=== PATIENT | male | born 1990 | race Caucasian/White ===

== ENCOUNTER 2018-04-01 16:06 | Inpatient (IN) | payer SELFPAY ==
[~2018-04-01] VITALS: Ht 180.3 cm; Wt 108.4 kg
[2018-04-01] MEDS ORDERED: ONDANSETRON HCL 4MG/2ML INJ IV STA (19:43)
[2018-04-01] MEDS ORDERED: FAMOTIDINE 20MG/2ML VIAL IV STA (19:43)
[2018-04-01] MEDS ORDERED: SODIUM CHLORIDE 0.9% 1,000 ML IV ONE (19:43)
[2018-04-01] MEDS ORDERED: MORPHINE SULFATE 4 MG/ML CPJ (NOT FOR IM USE) IV STA (19:43)
[2018-04-01 20:25] LABS: BASOPHILS % 0.5 % (0.0-2.0); EOSINOPHILS % 1.1 % (0.0-5.0); HEMATOCRIT. 42.9 % (42.0-52.0); HEMOGLOBIN. 15.2 g/dL (14.0-18.0); MEAN CORPUSCULAR HEMOGLOBIN 31.9 pg (28.0-32.0); MEAN CORPUSCULAR VOLUME 89.9 fL (80.0-94.0); MEAN PLATELET VOLUME 9.1 fl (7.4-10.4); MONOCYTES % 8.5 % (2.0-8.0); NEUTROPHILS % 72.9 % (40.0-76.0); PLATELET 187 x1000/uL (130-400); RED BLOOD CELL COUNT 4.78 mill/uL (4.7-6.1); RED CELL DISTRIBUTION WIDTH 13.4 % (11.6-14.6)
[2018-04-01 20:27] LABS: CHLORIDE 101 mEq/L (98-107); INR 1.1; PROTHROMBIN TIME 10.9 sec (9.1-11.1)
[2018-04-01 20:31] LABS: ETHANOL BLOOD < 10 mg/dL
[2018-04-01] MEDS ORDERED: SODIUM CHLORIDE 0.9% 1000ML BAG (SEPSIS BOLUS) IV ONE (20:45)
[2018-04-01 21:09] LABS: AMYLASE 71 IU/L (25-115)
[2018-04-01 21:50] LABS: CLARITY URINE CLOUDY (CLEAR); COLOR URINE YELLOW (YELLOW); KETONES URINE 1+ (NEGATIVE); LEUKOCYTE ESTERASE URINE 1+ (NEGATIVE); NITRITE URINE NEGATIVE (NEGATIVE); OCCULT BLOOD URINE 2+ (NEGATIVE); PROTEIN URINE NEGATIVE (NEGATIVE); SPECIFIC GRAVITY URINE 1.051 (1.005-1.030); UROBILINOGEN URINE 0.2 E.U./dL (0.2-1.0)
[2018-04-01 22:12] LABS: *AMPHETAMINES SCREEN URINE NEGATIVE (NEGATIVE); *BARBITURATES SCREEN URINE NEGATIVE (NEGATIVE); *BENZODIAZEPINES SCREEN URINE NEGATIVE (NEGATIVE); METHADONE URINE SCREEN NEGATIVE (NEGATIVE); OPIATES URINE SCREEN NEGATIVE (NEGATIVE); PHENCYCLIDINE URINE SCREEN NEGATIVE (NEGATIVE)
[2018-04-01 22:13] LABS: *COCAINE SCREEN URINE NEGATIVE (NEGATIVE); CANNABINOID URINE SCREEN NEGATIVE (NEGATIVE)
[2018-04-02] VITALS (7 sets, daily range): BP systolic 100–124; BP diastolic 56–81
[2018-04-02] MEDS ORDERED: ONDANSETRON HCL 4MG/2ML INJ IV PRN (01:30)
[2018-04-02] MEDS: DEXT 5%/0.45% NACL KCL 20MEQ/L 1,000 ML IV SCH ×2 (04:41→21:05)
[2018-04-02 07:12] LABS: BASOPHILS % 0.4 % (0.0-2.0); EOSINOPHILS % 2.1 % (0.0-5.0); HEMATOCRIT. 37.9 % (42.0-52.0); LYMPHOCYTES % 21.7 % (20.0-50.0); MEAN CORPUSCULAR HEMOGLOBIN 30.9 pg (28.0-32.0); MEAN CORPUSCULAR VOLUME 90.3 fL (80.0-94.0); MEAN PLATELET VOLUME 8.9 fl (7.4-10.4); MONOCYTES % 8.7 % (2.0-8.0); NEUTROPHILS % 67.1 % (40.0-76.0); PLATELET 145 x1000/uL (130-400); RED CELL DISTRIBUTION WIDTH 13.6 % (11.6-14.6)
[2018-04-02 08:26] LABS: CHLORIDE 106 mEq/L (98-107)
[2018-04-02 08:29] LABS: AMYLASE 83 IU/L (25-115)
[2018-04-02] MEDS: PANTOPRAZOLE SODIUM 40 MG/VIAL IV SCH (08:33)
[2018-04-02 08:35] LABS: LDL CHOLESTEROL 52 mg/dL (5-100)
[2018-04-02 08:37] LABS: HDL CHOLESTEROL 26 mg/dL (40-59)
[2018-04-02] MEDS ORDERED: HYDROMORPHONE HCL/PF 2MG/ML CPJ IV PRN (12:15)
[2018-04-02] MEDS: FENOFIBRATE NANOCRYSTALLIZED 145MG TABLET PO SCH (12:30)
[2018-04-02] MEDS: CEFTRIAXONE 1 G PREMIX 50 ML IV SCH (14:14)
[2018-04-02] MEDS ORDERED: ACETAMINOPHEN 650MG/20.3ML UDC PO PRN (22:45)
[2018-04-03] VITALS: BP 114/68
[2018-04-03 04:00] VITALS: BP 99/67
[2018-04-03] MEDS: DEXT 5%/0.45% NACL KCL 20MEQ/L 1,000 ML IV SCH ×2 (04:47→11:29)
[2018-04-03 07:44] LABS: BASOPHILS % 0.5 % (0.0-2.0); EOSINOPHILS % 3.5 % (0.0-5.0); HEMOGLOBIN. 12.7 g/dL (14.0-18.0); LYMPHOCYTES % 29.7 % (20.0-50.0); MEAN CORPUSCULAR HEMOGLOBIN 31.3 pg (28.0-32.0); MEAN CORPUSCULAR VOLUME 91.3 fL (80.0-94.0); MONOCYTES % 9.6 % (2.0-8.0); NEUTROPHILS % 56.7 % (40.0-76.0); PLATELET 152 x1000/uL (130-400); RED BLOOD CELL COUNT 4.06 mill/uL (4.7-6.1); RED CELL DISTRIBUTION WIDTH 13.8 % (11.6-14.6)
[2018-04-03 07:54] LABS: CHLORIDE 101 mEq/L (98-107)
[2018-04-03 08:00] VITALS: BP 107/68
[2018-04-03 08:10] LABS: AMYLASE 38 IU/L (25-115)
[2018-04-03] MEDS: FENOFIBRATE NANOCRYSTALLIZED 145MG TABLET PO SCH (08:31)
[2018-04-03] MEDS: PANTOPRAZOLE SODIUM 40 MG/VIAL IV SCH (08:31)
[2018-04-03] MEDS: CEFTRIAXONE 1 G PREMIX 50 ML IV SCH (10:40)
[2018-04-03] MEDS ORDERED: INFLUENZA VIRUS VACCINE(AFLURIA) 0.5ML SYR IM ONE (11:30)
[2018-04-03 11:48] VITALS: BP 120/60
[2018-04-03 12:00] VITALS: BP 120/60
== END 2018-04-03 12:26 | disposition home or self-care (01) | DRG 282 ==
LOC: ER 16:06 → 6EST 21:42 → EDBEDREQ 22:11 → ENRESERV 22:45
PROVIDERS: ADMIT Internal Medicine; ATTEND Internal Medicine
DX: K85.90 Acute pancreatitis without necrosis or infection, unspecified (principal); K76.0 Fatty (change of) liver, not elsewhere classified; E87.1 Hypo-osmolality and hyponatremia; E78.1 Pure hyperglyceridemia; N39.0 Urinary tract infection, site not specified; E66.9 Obesity, unspecified; Z68.33 Body mass index [BMI] 33.0-33.9, adult; Z71.3 Dietary counseling and surveillance
CPT/HCPCS: 36415; 71045; 76705; 80061; 80305; 82150; 83036; 83605; 83880; 84484; 90686; 93005; 96361; 96374; 96375; 99285; C9113; G0482; J0696; J2270; J2405; J3490; J7030; J7050

== ENCOUNTER 2019-08-17 07:11 | Inpatient (IN) | payer SELFPAY ==
[~2019-08-17] VITALS: Ht 182.9 cm; Wt 102.1 kg
[2019-08-17] MEDS ORDERED: MORPHINE SULFATE 4 MG/ML CPJ (NOT FOR IM USE) IV ONE (09:30)
[2019-08-17] MEDS ORDERED: ONDANSETRON HCL 4MG/2ML INJ IV ONE (09:30)
[2019-08-17 09:41] LABS: BASOPHILS % 0.3 % (0.0-2.0); EOSINOPHILS % 1.5 % (0.0-5.0); LYMPHOCYTES % 15.7 % (20.0-50.0); MEAN CORPUSCULAR VOLUME 87.8 fL (80.0-94.0); MEAN PLATELET VOLUME 8.9 fl (7.4-10.4); NEUTROPHILS % 73.5 % (40.0-76.0); PLATELET 189 x1000/uL (130-400); RED BLOOD CELL COUNT 4.78 mill/uL (4.7-6.1); RED CELL DISTRIBUTION WIDTH 13.6 % (11.6-14.6)
[2019-08-17 10:02] LABS: CLARITY URINE CLEAR (CLEAR); COLOR URINE YELLOW (YELLOW); KETONES URINE 4+ (NEGATIVE); LEUKOCYTE ESTERASE URINE NEGATIVE (NEGATIVE); NITRITE URINE NEGATIVE (NEGATIVE); OCCULT BLOOD URINE NEGATIVE (NEGATIVE); PROTEIN URINE NEGATIVE (NEGATIVE); SPECIFIC GRAVITY URINE 1.046 (1.005-1.030); UROBILINOGEN URINE 0.2 E.U./dL (0.2-1.0)
[2019-08-17 10:09] LABS: CHLORIDE 104 mEq/L (98-107)
[2019-08-17 10:17] LABS: MEAN CORPUSCULAR HEMOGLOBIN 30.5 pg (28.0-32.0)
[2019-08-17 10:18] LABS: HEMOGLOBIN. 14.6 g/dL (14.0-18.0)
[2019-08-17 10:42] LABS: PROTHROMBIN TIME 10.5 sec (9.6-11.0)
[2019-08-17 15:42] VITALS: BP 127/86
[2019-08-17] MEDS ORDERED: ONDANSETRON HCL 4MG/2ML INJ IV PRN (15:45)
[2019-08-17] MEDS ORDERED: DEXTROSE 50% WATER 50ML SYRINGE IV PRN (15:45)
[2019-08-17] MEDS ORDERED: ZOLPIDEM TARTRATE 5MG TABLET PO PRN (15:45)
[2019-08-17] MEDS ORDERED: LORAZEPAM 0.5MG TABLET PO PRN (15:45)
[2019-08-17] MEDS ORDERED: GUAIFENESIN 200MG/10ML SUGAR FREE UDC PO PRN (15:45)
[2019-08-17] MEDS ORDERED: CLONIDINE 0.1MG TABLET PO PRN (15:45)
[2019-08-17] MEDS ORDERED: ACETAMINOPHEN 325MG TABLET PO PRN ×2 (15:45)
[2019-08-17] MEDS ORDERED: NITROGLYCERIN 0.4MG TABLET SL SL PRN (15:45)
[2019-08-17] MEDS ORDERED: DOCUSATE SODIUM 100MG CAPSULE PO PRN (15:45)
[2019-08-17] MEDS ORDERED: MAGNESIUM/ALUMINUM HYDROXIDE/SIMETHICONE 30ML UDC PO PRN (15:45)
[2019-08-17] MEDS ORDERED: IPRATROPIUM/ALBUTEROL 0.5-3(2.5)MG/3ML NEB ORI PRN (15:45)
[2019-08-17 16:00] VITALS: BP 128/78
[2019-08-17] MEDS: PANTOPRAZOLE SODIUM 40 MG/VIAL IV SCH (17:36)
[2019-08-17] MEDS: SODIUM CHLORIDE 0.9% 1,000 ML IV SCH (17:36)
[2019-08-17] MEDS: GEMFIBROZIL 600MG TABLET PO SCH (17:37)
[2019-08-17] MEDS: HEPARIN 5000 UNITS/ML VIAL SUBCUT SCH ×2 (17:37→21:38)
[2019-08-17] MEDS: KETOROLAC 30MG/ML VIAL IV PRN (17:38)
[2019-08-17] MEDS: BLOOD SUGAR DIAGNOSTIC STRIP TEST SCH ×2 (17:38→21:36)
[2019-08-17] MEDS: INSULIN LISPRO 100 UNITS/ML SUBCUT SCH ×2 (18:29→21:39)
[2019-08-17 18:44] LABS: LDL CHOLESTEROL 210 mg/dL (5-100)
[2019-08-17 19:28] LABS: AMYLASE 138 IU/L (25-115)
[2019-08-17 19:34] LABS: HDL CHOLESTEROL 26 mg/dL (40-59)
[2019-08-17 19:51] LABS: *AMPHETAMINES SCREEN URINE NEGATIVE (NEGATIVE); *BARBITURATES SCREEN URINE NEGATIVE (NEGATIVE); *BENZODIAZEPINES SCREEN URINE NEGATIVE (NEGATIVE); *COCAINE SCREEN URINE NEGATIVE (NEGATIVE); METHADONE URINE SCREEN NEGATIVE (NEGATIVE)
[2019-08-17 19:52] LABS: CANNABINOID URINE SCREEN NEGATIVE (NEGATIVE); OPIATES URINE SCREEN PRESUMTIVE POSITIVE (NEGATIVE); PHENCYCLIDINE URINE SCREEN NEGATIVE (NEGATIVE)
[2019-08-17 19:55] LABS: ETHANOL BLOOD < 10 mg/dL
[2019-08-17 20:00] VITALS: BP 104/54
[2019-08-18] MEDS: KETOROLAC 30MG/ML VIAL IV PRN ×4 (00:46→20:28)
[2019-08-18] MEDS: SODIUM CHLORIDE 0.9% 1,000 ML IV SCH ×4 (00:46→18:11)
[2019-08-18 04:00] VITALS: BP 120/67
[2019-08-18] MEDS: HEPARIN 5000 UNITS/ML VIAL SUBCUT SCH ×3 (06:03→20:28)
[2019-08-18 06:41] LABS: BASOPHILS % 0.6 % (0.0-2.0); EOSINOPHILS % 2.1 % (0.0-5.0); HEMATOCRIT. 38.6 % (42.0-52.0); HEMOGLOBIN. 13.6 g/dL (14.0-18.0); LYMPHOCYTES % 18.5 % (20.0-50.0); MEAN CORPUSCULAR HEMOGLOBIN 31.2 pg (28.0-32.0); MEAN CORPUSCULAR VOLUME 88.8 fL (80.0-94.0); MEAN PLATELET VOLUME 8.9 fl (7.4-10.4); MONOCYTES % 8.4 % (2.0-8.0); NEUTROPHILS % 70.4 % (40.0-76.0); PLATELET 149 x1000/uL (130-400); RED BLOOD CELL COUNT 4.35 mill/uL (4.7-6.1); RED CELL DISTRIBUTION WIDTH 13.9 % (11.6-14.6)
[2019-08-18] MEDS: BLOOD SUGAR DIAGNOSTIC STRIP TEST SCH ×4 (06:56→20:28)
[2019-08-18 06:58] LABS: CHLORIDE 107 mEq/L (98-107)
[2019-08-18 07:21] LABS: AMYLASE 228 IU/L (25-115)
[2019-08-18 08:00] VITALS: BP 127/70
[2019-08-18] MEDS: PANTOPRAZOLE SODIUM 40 MG/VIAL IV SCH (09:03)
[2019-08-18] MEDS: GEMFIBROZIL 600MG TABLET PO SCH ×2 (09:03→17:59)
[2019-08-18] MEDS: INSULIN LISPRO 100 UNITS/ML SUBCUT SCH ×4 (09:41→21:00)
[2019-08-18 12:00] VITALS: BP 132/75
[2019-08-18 16:00] VITALS: BP 130/78
[2019-08-18 20:00] VITALS: BP 132/71
[2019-08-18] MEDS: FAMOTIDINE 20MG/2ML VIAL IV SCH (20:27)
[2019-08-19] VITALS: BP 109/68
[2019-08-19] MEDS: SODIUM CHLORIDE 0.9% 1,000 ML IV SCH ×4 (00:32→21:24)
[2019-08-19 04:00] VITALS: BP 111/67
[2019-08-19] MEDS: HEPARIN 5000 UNITS/ML VIAL SUBCUT SCH ×3 (05:41→21:21)
[2019-08-19] MEDS: KETOROLAC 30MG/ML VIAL IV PRN (05:51)
[2019-08-19] MEDS: BLOOD SUGAR DIAGNOSTIC STRIP TEST SCH ×4 (06:43→20:49)
[2019-08-19] MEDS: INSULIN LISPRO 100 UNITS/ML SUBCUT SCH ×4 (06:44→21:00)
[2019-08-19 07:35] LABS: CHLORIDE 106 mEq/L (98-107)
[2019-08-19 07:42] LABS: AMYLASE 113 IU/L (25-115)
[2019-08-19 07:46] LABS: PHOSPHORUS 1.8 mg/dL (2.5-4.9)
[2019-08-19 07:47] LABS: LDL CHOLESTEROL 89 mg/dL (5-100)
[2019-08-19 07:48] LABS: BASOPHILS % 0.5 % (0.0-2.0); EOSINOPHILS % 3.2 % (0.0-5.0); HEMATOCRIT. 37.6 % (42.0-52.0); HEMOGLOBIN. 13.1 g/dL (14.0-18.0); LYMPHOCYTES % 27.6 % (20.0-50.0); MEAN CORPUSCULAR HEMOGLOBIN 31.2 pg (28.0-32.0); MEAN CORPUSCULAR VOLUME 89.4 fL (80.0-94.0); MEAN PLATELET VOLUME 8.7 fl (7.4-10.4); NEUTROPHILS % 59.7 % (40.0-76.0); PLATELET 130 x1000/uL (130-400); RED BLOOD CELL COUNT 4.21 mill/uL (4.7-6.1); RED CELL DISTRIBUTION WIDTH 14.1 % (11.6-14.6)
[2019-08-19 07:49] LABS: HDL CHOLESTEROL 28 mg/dL (40-59)
[2019-08-19 08:00] VITALS: BP 107/48
[2019-08-19] MEDS: GEMFIBROZIL 600MG TABLET PO SCH ×2 (08:35→18:13)
[2019-08-19] MEDS: FAMOTIDINE 20MG/2ML VIAL IV SCH ×2 (09:13→20:49)
[2019-08-19 12:00] VITALS: BP 117/68
[2019-08-19] MEDS ORDERED: POTASSIUM PHOS,M-BASIC-D-BASIC 20 MMOL in DEXT 5% WATER 243.3333 ML IV ONE (13:00)
[2019-08-19 16:00] VITALS: BP 113/50
[2019-08-19 20:00] VITALS: BP 116/66
[2019-08-20] VITALS: BP 111/59
[2019-08-20] MEDS: SODIUM CHLORIDE 0.9% 1,000 ML IV SCH (03:51)
[2019-08-20 04:00] VITALS: BP 104/56
[2019-08-20] MEDS: HEPARIN 5000 UNITS/ML VIAL SUBCUT SCH (06:00)
[2019-08-20 07:01] LABS: BASOPHILS % 0.5 % (0.0-2.0); EOSINOPHILS % 3.9 % (0.0-5.0); HEMATOCRIT. 39.5 % (42.0-52.0); HEMOGLOBIN. 13.4 g/dL (14.0-18.0); LYMPHOCYTES % 28.1 % (20.0-50.0); MEAN CORPUSCULAR HEMOGLOBIN 30.6 pg (28.0-32.0); MEAN CORPUSCULAR VOLUME 89.9 fL (80.0-94.0); MEAN PLATELET VOLUME 8.7 fl (7.4-10.4); MONOCYTES % 9.4 % (2.0-8.0); NEUTROPHILS % 58.1 % (40.0-76.0); PLATELET 160 x1000/uL (130-400); RED CELL DISTRIBUTION WIDTH 14.2 % (11.6-14.6)
[2019-08-20 07:09] LABS: CHLORIDE 104 mEq/L (98-107)
[2019-08-20 07:26] LABS: AMYLASE 75 IU/L (25-115)
[2019-08-20] MEDS: BLOOD SUGAR DIAGNOSTIC STRIP TEST SCH (07:38)
[2019-08-20] MEDS: INSULIN LISPRO 100 UNITS/ML SUBCUT SCH (07:50)
[2019-08-20 08:00] VITALS: BP 114/61
[2019-08-20] MEDS: FAMOTIDINE 20MG/2ML VIAL IV SCH (08:20)
[2019-08-20] MEDS: GEMFIBROZIL 600MG TABLET PO SCH (08:20)
== END 2019-08-20 10:15 | disposition home or self-care (01) | DRG 282 ==
LOC: ER 07:11 → MICUSO 12:31 → EDBEDREQ 12:35 → 6EST 14:51
PROVIDERS: ADMIT Internal Medicine; ATTEND Internal Medicine
DX: K85.90 Acute pancreatitis without necrosis or infection, unspecified (principal); E44.0 Moderate protein-calorie malnutrition; K76.0 Fatty (change of) liver, not elsewhere classified; E11.65 Type 2 diabetes mellitus with hyperglycemia; E66.9 Obesity, unspecified; E78.1 Pure hyperglyceridemia; Z79.4 Long term (current) use of insulin; Z71.3 Dietary counseling and surveillance; Z91.11 Patient's noncompliance with dietary regimen; Z91.14 Patient's other noncompliance with medication regimen; Z68.30 Body mass index [BMI] 30.0-30.9, adult; Z79.899 Other long term (current) drug therapy; Z79.51 Long term (current) use of inhaled steroids; Z79.1 Long term (current) use of non-steroidal anti-inflammatories (NSAID)
CPT/HCPCS: 36415; 76705; 80053; 80061; 80305; 80320; 81003; 82150; 82962; 83036; 83735; 84100; 85025; 99285; C9113; J1644; J1815; J1885; J2270; J2405; J3490; J7030; J7060; G0480